=== PATIENT | male | born 1985 | race Caucasian/White ===

== ENCOUNTER 2017-11-09 11:13 | Emergency (ER) | payer BC, OTHER ==
[2017-11-09] MEDS: Lidocaine 0.5% 50 ML SDV INFILT ONE (11:55)
--- NOTE | 2017-11-09 12:21 | EDM.PDOC ---
ED HPI GENERAL MEDICAL PROBLEM - General Chief Complaint: Upper Extremity Injury/Pain Stated Complaint: arm laceration Time Seen by Provider: 11/09/17 11:18 Source of Information: Reports: Patient History Limitations: Reports: No Limitations - History of Present Illness INITIAL COMMENTS - FREE TEXT/NARRATIVE: Patient cut left forearm with boxcutter while at work. No loss of function but has pain in area. Tetanus updated several days ago. Picked today to try to quit smoking. Left Lower Arm Pain Score (Numeric/FACES): 7 - Related Data Allergies Allergy/AdvReac Type Severity Reaction Status Date / Time No Known Allergies Allergy Verified 11/09/17 11:15 Home Meds: Home Meds Albuterol [Ventolin HFA] 1 puff INH Q4H PRN #1 puff 11/09/17 [Rx] Fluticasone/Salmeterol [Advair 100-50] 1 puff INH BID #1 diskus 11/09/17 [Rx] predniSONE 40 mg PO DAILY #4 tab 11/09/17 [Rx] Past Medical History HEENT History: Reports: Otitis Media Cardiovascular History: Reports: None Respiratory History: Reports: Bronchitis, Recurrent Psychiatric History: Reports: Addiction (ETOH/cigarettes) - Infectious Disease History Infectious Disease History: Reports: Chicken Pox - Past Surgical History HEENT Surgical History: Reports: Oral Surgery Cardiovascular Surgical History: Reports: None Respiratory Surgical History: Reports: None Social & Family History - Tobacco Use Smoking Status *Q: Current Every Day Smoker Years of Tobacco use: 14 Packs/Tins Daily: 0.5 Second Hand Smoke Exposure: Yes - Caffeine Use Caffeine Use: Reports: None - Alcohol Use Days Per Week of Alcohol Use: 6 Number of Drinks Per Day: 6 Total Drinks Per Week: 36 - Recreational Drug Use Recreational Drug Use: Yes Drug Use in Last 12 Months: Yes Recreational Drug Type: Reports: Marijuana/Hashish Recreational Drug Use Frequency: Weekly Review of Systems - Review of Systems Review Of Systems: ROS reveals no pertinent complaints other than HPI. ED EXAM, GENERAL - Physical Exam Exam: See Below Exam Limited By: No Limitations General Appearance: Alert, WD/WN, Anxious Eye Exam: Bilateral Eye: EOMI, PERRL Ears: Normal External Exam Throat/Mouth: Normal Lips, Normal Voice, No Airway Compromise Head: Atraumatic, Normocephalic Neck: Supple Peripheral Pulses: 2+: Radial (L), Radial (R) Extremities: Other (laceration 1.5cm ventral forearm. Retains full ROM of left elbow/wrist/hand. NVI. ) Neurological: Alert, Oriented, Normal Cognition, Normal Gait, No Motor/Sensory Deficits Psychiatric: Normal Affect, Normal Mood Skin Exam: Warm, Dry ED TRAUMA EXTREMITY PROCEDURES - Laceration/Wound Repair Left Lower Ventral Arm Lac/Wound Length In cm: 1.5 Appearance: Muscle, Linear, Clean Distal NVT: Neuro & Vascular Intact Anesthetic Type: Local Local Anesthesia - Lidocaine (Xylocaine): 0.5% Plain Local Anesthetic Volume: 4cc Skin Prep: Chlorhexidine (Hibiciens) Exploration/Debridement/Repair: Wound Explored, In a Bloodless Field, Explored to Base, Foreign Material Removed Closed With: Sutures Suture Size: 3-0 # of Sutures: 3 Suture Type: Nylon, Interrupted Drain Placement: No Sterile Dressing Applied: Nurse Tetanus Status Addressed: Yes Complications: No Course - Vital Signs Last Recorded V/S: Last Vital Signs Temp 37.1 C 11/09/17 11:15 Pulse 83 11/09/17 11:15 Resp 16 11/09/17 11:15 BP 141/81 H 11/09/17 11:15 Pulse Ox 97 11/09/17 11:15 - Orders/Labs/Meds Meds: Medications Discontinued Medications Generic Name Dose Route Start Last Admin Trade Name Gustabo PRN Reason Stop Dose Admin Lidocaine HCl 5 ml 11/09/17 11:19 11/09/17 11:55 Xylocaine-Mpf 0.5% INFILT 11/09/17 11:20 5 ml ONETIME ONE Administration Neomycin/Polymyxin/Bacitracin Confirm 11/09/17 12:04 11/09/17 12:26 Triple Antibiotic Oint Administered 11/09/17 12:05 Not Given Dose 1 each .ROUTE .STK-MED ONE Neomycin/Polymyxin/Bacitracin 1 each 11/09/17 12:04 11/09/17 12:26 Triple Antibiotic Oint TOP 11/09/17 12:05 1 each ONETIME ONE Administration - Re-Assessments/Exams Free Text/Narrative Re-Assessment/Exam: 11/09/17 12:31 Laceration repaired. Minimal involvement of underlying muscles noted on exploration of wound. No work for 48 hours to allow area to rest. Wound care discussed. Patient concerned about cough and ear ache that he has been having recently. Appointment made for him to be seen for this at the clinic once he is discharged from the ER. Patient made aware that we are concerned with the daily amount of ETOH he reports using. Recommendation to visit with CD counselor made. Departure - Departure Time of Disposition: 12:19 Disposition: Home, Self-Care 01 Condition: Good Clinical Impression: Laceration of left forearm Qualifiers: Encounter type: initial encounter Qualified Code(s): S51.812A - Laceration without foreign body of left forearm, initial encounter - Discharge Information *PRESCRIPTION DRUG MONITORING PROGRAM REVIEWED*: Not Applicable *COPY OF PRESCRIPTION DRUG MONITORING REPORT IN PATIENT LISA: Not Applicable Prescriptions: Albuterol [Ventolin HFA] 1 puff INH Q4H PRN #1 puff PRN Reason: Shortness Of Breath Fluticasone/Salmeterol [Advair 100-50] 1 puff INH BID #1 diskus predniSONE 40 mg PO DAILY #4 tab Instructions: Alcohol Use Disorder, Laceration Care, Adult, [id number] Referrals: Kalpana Latham PA-C [Primary Care Provider] - Forms: ED Department Discharge, ED Return to Work/School Form Additional Instructions: Laceration care as discussed. Sutures out next or Monday. Follow up for recheck if any problems or signs of infection develop. Take an honest look at the amount of alcohol you are drinking every day. If you are having that many drinks a day we highly recommend you visit with a chemical dependency counselor to review your use of alcohol, and discuss cutting back or discontinuing it altogether.
[2017-11-09] MEDS: Bacitracin/Neomycin/Polymyxin B Oint 0.9 GM U/D Packet ONE (12:26)
[2017-11-09] MEDS: Bacitracin/Neomycin/Polymyxin B Oint 0.9 GM U/D Packet TOP ONE (12:26)
== END 2017-11-09 12:45 | disposition home or self-care (01) ==
LOC: LL.ED 11:13
DX: S51.812A Laceration without foreign body of left forearm, initial encounter (principal); F17.210 Nicotine dependence, cigarettes, uncomplicated; Z79.899 Other long term (current) drug therapy; W26.8XXA Contact with other sharp object(s), not elsewhere classified, initial encounter; Y99.0 Civilian activity done for income or pay
CPT/HCPCS: 12001; 99282